=== PATIENT | female | born 1985 | race Caucasian/White ===

== ENCOUNTER 2019-10-08 14:47 | Emergency (ER) | payer OTHER, SELFPAY ==
[2019-10-08 15:10] VITALS: BP 150/95; PULSE 105; RESP 20; TEMP 37.8; O2SAT 99
--- NOTE | 2019-10-08 15:27 | ED.URI ---
HPI - URI/Sore Throat General Chief Complaint: Upper Respiratory Infection Stated Complaint: Sore throat/cough/fever Time Seen by Provider: 10/08/19 15:13 Source: patient and RN notes reviewed Mode of arrival: ambulatory Limitations: no limitations History of Present Illness HPI Narrative: Patient presents today with a 2-day history of sore throat, nasal congestion, dry cough. Denies fever or ear pain. Reports shortness of breath only with severe coughing episodes. Reports history of seasonal allergies, but denies asthma. Patient is a non-smoker. She is been taking Tylenol and DayQuil without relief. MD elicited complaint: cough and sore throat Related Data Home Medications Medication Instructions Recorded Confirmed No Home Medications 10/08/19 10/08/19 Allergies Allergy/AdvReac Type Severity Reaction Status Date / Time No Known Allergies Allergy Verified 10/08/19 15:05 Review of Systems Review of Systems: Narrative: CONSTITUTIONAL: Denies body aches, fever, chills, or sweats. EYES: Denies visual changes, redness, or discharge. ENT: Denies rhinorrhea, or otalgia.+ Gastric, sore throat CARDIOVASCULAR: Denies chest pain, palpitations, or edema. RESPIRATORY: + Cough, shortness of breath with coughing episodes GASTROINTESTINAL: Denies abdominal pain, nausea, vomiting, or diarrhea. GENITOURINARY: Denies dysuria or hematuria. SKIN: Denies rash, itching, or wounds. MUSCULOSKELETAL: Denies back pain, joint pain, or myalgia. NEUROLOGIC: Denies headache, numbness, tingling, or weakness. PSYCH: Denies depression or anxiety. PMFSH Past Medical History Medical History (Updated 10/08/19 @ 15:31 by Diane Chun, [facility], ) Seasonal allergies Social History Social History (Updated 10/08/19 @ 15:29 by Diane Chun, [facility], ) Smoking status: Never smoker Comments At time of signature, I have reviewed and agree with nursing past medical, surgical, social and family history unless otherwise noted. Please see nursing chart for further information. There is no relevant family history pertinent to the presenting complaint Exam Narrative: Exam Narrative: GENERAL: Well-appearing, well-nourished, and in no acute distress. HEAD: Normocephalic, atraumatic. EYES: EOMI. No redness or drainage. Conjunctivae normal. ENT: Mucous membranes pink and moist. Nares congested. No rhinorrhea. TMs normal bilaterally and full with clear fluid. Throat mildly erythematous and edematous without exudate. Uvula midline. NECK: Normal AROM. Supple. No lymphadenopathy. CHEST: No respiratory distress. Clear to auscultation. HEART: Regular rate and rhythm. No murmur appreciated. Normal peripheral pulses. EXTREMITIES: Normal range of motion. No edema. SKIN: Warm, dry, no rash. Capillary refill normal. Normal skin turgor. NEURO: No focal deficits. Alert and oriented x3. Gait steady. PSYCH: Normal affect. No signs of depression or anxiety. Course Course Emergency Course: Patient declines COVID-19 testing today. Vital Signs Vital signs: Vital Signs Temperature 100.1 F H 10/08/19 15:10 Pulse Rate 105 H 10/08/19 15:10 Respiratory Rate 20 10/08/19 15:10 Blood Pressure 150/95 H 10/08/19 15:10 Pulse Oximetry 99 10/08/19 15:10 Temperature 100.1 F H 10/08/19 15:10 Pulse Rate 105 H 10/08/19 15:10 Respiratory Rate 20 10/08/19 15:10 Blood Pressure 150/95 H 10/08/19 15:10 Pulse Oximetry 99 10/08/19 15:10 Reviewed. Pt has been instructed to follow up with her PCP regarding her elevated blood pressure today. MDM - URI/Sore Throat Differential Diagnosis Differential diagnosis: Likely upper respiratory infection, otitis media, viral infection, bronchitis, pharyngitis and other (Strep throat, seasonal allergies, allergic rhinitis, COVID-19) Lab Data Attestation: I reviewed the patient's lab results. Labs: Strep Screen Presumptive Negative *(Reference Range: Negative)* Cr
== END 2019-10-08 15:35 | disposition home or self-care (01) ==
PROVIDERS: Emergency Provider Nurse Practitioner
DX: J02.9 Acute pharyngitis, unspecified (principal)
CPT/HCPCS: 87081; 87880; 99203; G0463